=== PATIENT | male | born 1955 | race Hispanic/Latino ===

== ENCOUNTER 2020-10-02 10:24 | Day surgery (SDC) | payer MEDICARE ==
[2020-10-02] VITALS (15 sets, daily range): BP systolic 76–128; BP diastolic 45–77
[~2020-10-02 10:24] MED LIST: ASCO500C18 PEG; FERR-82 PEG; OMEP20CA12 PEG; SIMV-46 PEG; VITAMIN D PEG; [UNRECOGNIZED DRUG - OTHER] PEG
[2020-10-02] MEDS ORDERED: SODIUM CHLORIDE 0.9% 1000ML 1,000 ML IV ONE (11:50)
[2020-10-02] MEDS ORDERED: LIDOCAINE HCL 1% 20 ML VIAL ONE (13:06)
[2020-10-02] MEDS ORDERED: PROPOFOL 10 MG/ML 20ML VIAL IV ONE (13:08)
[2020-10-02] MEDS ORDERED: EPHEDRINE SULFATE 50 MG/ML AMPULE ONE (13:39)
== END 2020-10-02 15:09 | disposition home or self-care (01) ==
LOC: ENDO 10:24 → DAH 10:24 → ENDO 15:09
PROVIDERS: ATTEND Internal Medicine Gastroenterology
DX: K21.00 Gastro-esophageal reflux disease with esophagitis, without bleeding (principal); K22.10 Ulcer of esophagus without bleeding; K44.9 Diaphragmatic hernia without obstruction or gangrene; K29.00 Acute gastritis without bleeding; K29.80 Duodenitis without bleeding; K29.50 Unspecified chronic gastritis without bleeding; K26.9 Duodenal ulcer, unspecified as acute or chronic, without hemorrhage or perforation; E11.9 Type 2 diabetes mellitus without complications; Z82.49 Family history of ischemic heart disease and other diseases of the circulatory system; Z82.0 Family history of epilepsy and other diseases of the nervous system; Z79.899 Other long term (current) drug therapy; Z79.01 Long term (current) use of anticoagulants
CPT/HCPCS: 43239; 43246; A4215 ×3; A4221; A4222; A4223; A4606; A4620; A4657; A4663; J2704; J3490; J7030